=== PATIENT | female | born 1965 | race Asian ===

== ENCOUNTER 2016-10-20 16:21 | Inpatient (IN) | payer OTHER ==
[~2016-10-20] VITALS: Ht 170.2 cm; Wt 118.4 kg
[~2016-10-20 16:21] MED LIST: AMOX1TAB64 PO; METF10002 PO; OXYC-302 PO
[2016-10-20] MEDS ORDERED: ALBUTEROL/IPRATROPIUM 2.5MG/0.5MG, 3 ML NPPB ONE (17:00)
[2016-10-20 17:21] LABS: BLOOD UREA NITROGEN 9 mg/dL (7-18)
[2016-10-20] MEDS ORDERED: ALBUTEROL/IPRATROPIUM 2.5MG/0.5MG, 3 ML ONE (19:46)
[2016-10-20] MEDS ORDERED: LIDOCAINE 1%, 20ML SQ ONE (20:00)
[2016-10-20] MEDS ORDERED: LIDOCAINE 1%, 20ML ONE (20:01)
[2016-10-20] MEDS ORDERED: SODIUM CHLORIDE 0.9% 1,000ML IVBOLUS ONE (20:30)
[2016-10-20] MEDS ORDERED: CLINDAMYCIN PMX 900MG/50ML 50 ML IV ONE (20:30)
[2016-10-20] MEDS ORDERED: CLINDAMYCIN PMX 900MG/50ML 50 ML ONE (21:05)
[2016-10-20] MEDS: OXYcodone IR 5MG TABLET PO PRN (22:38)
[2016-10-20] MEDS: HEPARIN 5,000 UNITS/ML, 1ML SQ SCH (22:38)
[2016-10-20] MEDS: SODIUM CHLORIDE 0.9% 1,000 ML IV SCH (22:39)
[2016-10-21] MEDS: INSULIN ASPART 100 UNITS/ML, PEN SQ-INSULIN SCH ×3 (00:28→11:00)
[2016-10-21 00:31] VITALS: BP 119/77
[2016-10-21 00:47] VITALS: BP 134/77
[2016-10-21] MEDS: OXYcodone IR 5MG TABLET PO PRN ×4 (04:40→20:42)
[2016-10-21] MEDS: CLINDAMYCIN PMX 600MG/50ML 50 ML IV SCH ×3 (04:40→20:41)
[2016-10-21 06:32] LABS: BLOOD UREA NITROGEN 10 mg/dL (7-18)
[2016-10-21 06:38] LABS: ASPARTATE AMINO TRANSFERASE 15 U/L (15-37)
[2016-10-21 07:22] VITALS: BP 119/81
[2016-10-21] MEDS: HEPARIN 5,000 UNITS/ML, 1ML SQ SCH ×2 (08:05→16:13)
[2016-10-21] MEDS: SENNA/DOCUSATE TABLET PO SCH (08:07)
[2016-10-21] MEDS ORDERED: metFORMIN 500 MG TABLET PO SCH (09:00)
[2016-10-21] MEDS: SODIUM CHLORIDE 0.9% 1,000 ML IV SCH ×2 (10:18→20:42)
[2016-10-21] MEDS ORDERED: GLUCAGON 1 MG IM PRN (11:30)
[2016-10-21] MEDS: SODIUM CHLORIDE FLUSH 10ML SYR IVF SCH ×2 (11:30→20:42)
[2016-10-21] MEDS ORDERED: DEXTROSE 50%, 50ML SYRINGE IVPush PRN (11:30)
[2016-10-21] MEDS ORDERED: DEXTROSE 4 GM TAB.CHEW PO PRN (11:30)
[2016-10-21] MEDS: INSULIN REGULAR 100 UNITS/ML, 3ML VIAL SQ-INSULIN SCH ×3 (12:53→20:47)
[2016-10-21 13:12] VITALS: BP 130/74
[2016-10-21 18:39] VITALS: BP 128/84
[2016-10-21] MEDS ORDERED: ALBUTEROL SULFATE 2.5 MG/3 ML ONE (20:12)
[2016-10-22 00:15] VITALS: BP 117/74
[2016-10-22] MEDS: OXYcodone IR 5MG TABLET PO PRN ×5 (00:53→20:49)
[2016-10-22 05:01] LABS: BLOOD UREA NITROGEN 9 mg/dL (7-18)
[2016-10-22] MEDS: CLINDAMYCIN PMX 600MG/50ML 50 ML IV SCH ×3 (05:12→20:49)
[2016-10-22 06:57] VITALS: BP 106/69
[2016-10-22] MEDS: HEPARIN 5,000 UNITS/ML, 1ML SQ SCH ×4 (07:16→23:46)
[2016-10-22] MEDS: SODIUM CHLORIDE 0.9% 1,000 ML IV SCH ×2 (07:16→16:44)
[2016-10-22] MEDS: SODIUM CHLORIDE FLUSH 10ML SYR IVF SCH ×2 (08:30→20:49)
[2016-10-22] MEDS: SENNA/DOCUSATE TABLET PO SCH (08:31)
[2016-10-22] MEDS: POLYETHYLENE GLYCOL 17 GM PACKET PO PRN (08:31)
[2016-10-22] MEDS: INSULIN REGULAR 100 UNITS/ML, 3ML VIAL SQ-INSULIN SCH ×4 (08:31→20:57)
[2016-10-22 14:15] VITALS: BP 132/72
[2016-10-22] MEDS: ALBUTEROL SULFATE 2.5 MG/3 ML NPPB PRN (16:10)
[2016-10-22 20:30] VITALS: BP 114/74
[2016-10-23 00:44] VITALS: BP 110/71
[2016-10-23] MEDS: OXYcodone IR 5MG TABLET PO PRN ×5 (02:56→22:00)
[2016-10-23] MEDS: CLINDAMYCIN PMX 600MG/50ML 50 ML IV SCH ×3 (05:29→20:49)
[2016-10-23] MEDS: ONDANSETRON 2MG/ML, 2ML IVPush PRN (05:39)
[2016-10-23 07:24] VITALS: BP 114/72
[2016-10-23] MEDS: HEPARIN 5,000 UNITS/ML, 1ML SQ SCH ×2 (08:11→16:35)
[2016-10-23] MEDS: SODIUM CHLORIDE 0.9% 1,000 ML IV SCH ×2 (08:12→18:23)
[2016-10-23] MEDS: SENNA/DOCUSATE TABLET PO SCH (08:12)
[2016-10-23] MEDS: SODIUM CHLORIDE FLUSH 10ML SYR IVF SCH ×2 (08:13→20:49)
[2016-10-23] MEDS: INSULIN REGULAR 100 UNITS/ML, 3ML VIAL SQ-INSULIN SCH ×4 (08:15→20:50)
[2016-10-23 13:15] VITALS: BP 114/79
[2016-10-23] MEDS: LACTOBACILLUS CHEW TABLET PO SCH ×2 (16:35→20:50)
[2016-10-23 20:00] VITALS: BP 126/79
[2016-10-24] MEDS: HEPARIN 5,000 UNITS/ML, 1ML SQ SCH ×3 (00:29→16:30)
[2016-10-24 02:00] VITALS: BP 141/90
[2016-10-24] MEDS: OXYcodone IR 5MG TABLET PO PRN ×4 (02:41→17:49)
[2016-10-24] MEDS: SODIUM CHLORIDE 0.9% 1,000 ML IV SCH (05:08)
[2016-10-24] MEDS: CLINDAMYCIN PMX 600MG/50ML 50 ML IV SCH ×2 (05:08→13:24)
[2016-10-24 07:19] VITALS: BP 121/74
[2016-10-24] MEDS: POLYETHYLENE GLYCOL 17 GM PACKET PO PRN (08:31)
[2016-10-24] MEDS: INSULIN REGULAR 100 UNITS/ML, 3ML VIAL SQ-INSULIN SCH ×4 (08:31→21:16)
[2016-10-24] MEDS: SODIUM CHLORIDE FLUSH 10ML SYR IVF SCH ×2 (08:31→21:14)
[2016-10-24] MEDS: LACTOBACILLUS CHEW TABLET PO SCH ×3 (08:32→21:14)
[2016-10-24] MEDS: SENNA/DOCUSATE TABLET PO SCH (08:32)
[2016-10-24] MEDS: INSULIN DETEMIR 100 UNITS/ML, PEN SQ-INSULIN SCH ×2 (09:42→21:13)
[2016-10-24 14:00] VITALS: BP 125/80
[2016-10-24 20:00] VITALS: BP 128/83
[2016-10-24] MEDS ORDERED: CLINDAMYCIN PMX 600MG/50ML 50 ML IV SCH (21:00)
[2016-10-25] MEDS: OXYcodone IR 5MG TABLET PO PRN ×4 (00:33→16:25)
[2016-10-25] MEDS: HEPARIN 5,000 UNITS/ML, 1ML SQ SCH ×3 (00:34→16:28)
[2016-10-25 02:00] VITALS: BP 129/78
[2016-10-25] MEDS: INSULIN REGULAR 100 UNITS/ML, 3ML VIAL SQ-INSULIN SCH ×4 (07:00→20:18)
[2016-10-25 07:28] VITALS: BP 113/74
[2016-10-25] MEDS ORDERED: DOXYCYCLINE 100MG TABLET PO SCH (09:00)
[2016-10-25] MEDS ORDERED: AMOXICILLIN/CLAV 875-125MG TABLET PO SCH (09:00)
[2016-10-25] MEDS: SODIUM CHLORIDE FLUSH 10ML SYR IVF SCH ×2 (09:00→20:28)
[2016-10-25] MEDS: INSULIN DETEMIR 100 UNITS/ML, PEN SQ-INSULIN SCH ×2 (09:22→18:23)
[2016-10-25] MEDS: LACTOBACILLUS CHEW TABLET PO SCH ×3 (09:23→20:28)
[2016-10-25] MEDS: SENNA/DOCUSATE TABLET PO SCH (09:23)
[2016-10-25] MEDS: ONDANSETRON 2MG/ML, 2ML IVPush PRN (12:07)
[2016-10-25] MEDS: CLINDAMYCIN PMX 600MG/50ML 50 ML IV SCH ×2 (14:26→20:28)
[2016-10-25 14:28] VITALS: BP 135/79
[2016-10-25 19:26] VITALS: BP 127/77
[2016-10-26] MEDS: HEPARIN 5,000 UNITS/ML, 1ML SQ SCH ×3 (00:19→16:30)
[2016-10-26] MEDS: OXYcodone IR 5MG TABLET PO PRN (00:19)
[2016-10-26 02:10] VITALS: BP 109/68
[2016-10-26] MEDS: CLINDAMYCIN PMX 600MG/50ML 50 ML IV SCH ×4 (02:52→21:56)
[2016-10-26 05:04] LABS: BLOOD UREA NITROGEN 9 mg/dL (7-18)
[2016-10-26] MEDS: ONDANSETRON 2MG/ML, 2ML IVPush PRN (05:34)
[2016-10-26] MEDS: INSULIN REGULAR 100 UNITS/ML, 3ML VIAL SQ-INSULIN SCH ×4 (07:00→21:00)
[2016-10-26 07:20] VITALS: BP 116/72
[2016-10-26] MEDS: INSULIN DETEMIR 100 UNITS/ML, PEN SQ-INSULIN SCH ×2 (08:01→20:35)
[2016-10-26] MEDS: SODIUM CHLORIDE FLUSH 10ML SYR IVF SCH ×2 (08:03→21:00)
[2016-10-26] MEDS: LACTOBACILLUS CHEW TABLET PO SCH ×3 (08:03→20:34)
[2016-10-26] MEDS: SENNA/DOCUSATE TABLET PO SCH (08:03)
[2016-10-26] MEDS ORDERED: POTASSIUM CHLORIDE 20 MEQ TAB.ER.PRT PO ONE ×2 (11:30→12:00)
[2016-10-26] MEDS: BISACODYL 10 MG SUPP PR PRN (12:47)
[2016-10-26 13:25] VITALS: BP 110/68
[2016-10-26 19:28] VITALS: BP 115/76
[2016-10-26] MEDS ORDERED: DEXTROSE 50%, 50ML SYRINGE IVPush PRN (22:00)
[2016-10-26] MEDS ORDERED: POLYETHYLENE GLYCOL 17 GM PACKET PO PRN (22:00)
[2016-10-26] MEDS ORDERED: GLUCAGON 1 MG IM PRN (22:00)
[2016-10-27] MEDS: HEPARIN 5,000 UNITS/ML, 1ML SQ SCH ×4 (00:14→23:59)
[2016-10-27 01:46] VITALS: BP 126/80
[2016-10-27] MEDS: CLINDAMYCIN PMX 600MG/50ML 50 ML IV SCH ×2 (03:55→11:20)
[2016-10-27] MEDS: INSULIN REGULAR 100 UNITS/ML, 3ML VIAL SQ-INSULIN SCH ×2 (07:00→12:13)
[2016-10-27 07:19] VITALS: BP 124/85
[2016-10-27] MEDS: SENNA/DOCUSATE TABLET PO SCH (07:43)
[2016-10-27] MEDS: LACTOBACILLUS CHEW TABLET PO SCH ×3 (07:43→20:51)
[2016-10-27] MEDS: INSULIN DETEMIR 100 UNITS/ML, PEN SQ-INSULIN SCH ×2 (07:44→20:51)
[2016-10-27] MEDS: SODIUM CHLORIDE FLUSH 10ML SYR IVF SCH ×2 (07:44→20:51)
[2016-10-27] MEDS: ALBUTEROL SULFATE 2.5 MG/3 ML NPPB PRN ×2 (08:25→15:15)
[2016-10-27 13:38] VITALS: BP 108/70
[2016-10-27] MEDS: CEFAZOLIN PMX 1GM/50ML 50 ML IV SCH ×2 (14:47→22:51)
[2016-10-27 20:42] VITALS: BP 117/79
[2016-10-27] MEDS ORDERED: OMNIPAQUE 350 MG/ML, 100ML BOTTLE ONE (23:25)
[2016-10-27] MEDS: BISACODYL 10 MG SUPP PR PRN (23:32)
[2016-10-28] MEDS: CEFAZOLIN PMX 1GM/50ML 50 ML IV SCH ×2 (06:04→15:06)
[2016-10-28 07:31] VITALS: BP 115/78
[2016-10-28] MEDS: SODIUM CHLORIDE FLUSH 10ML SYR IVF SCH (09:00)
[2016-10-28] MEDS: SENNA/DOCUSATE TABLET PO SCH (09:00)
[2016-10-28] MEDS: INSULIN DETEMIR 100 UNITS/ML, PEN SQ-INSULIN SCH (10:12)
[2016-10-28] MEDS: LACTOBACILLUS CHEW TABLET PO SCH (10:12)
[2016-10-28] MEDS: HEPARIN 5,000 UNITS/ML, 1ML SQ SCH (10:12)
[2016-10-28] MEDS ORDERED: POLY17PO5 PO (10:16)
[2016-10-28] MEDS ORDERED: ACID1TAB7 PO (10:16)
[2016-10-28] MEDS ORDERED: SENN1TAB7 PO (10:16)
[2016-10-28] MEDS ORDERED: CEPH-368 PO (10:16)
[2016-10-28] MEDS ORDERED: OXYC5TAB3 PO (10:16)
[2016-10-28] MEDS ORDERED: INSU100C5 SQ-INSULIN (10:17)
[2016-10-28] MEDS ORDERED: OXYC-302 PO (10:33)
[2016-10-28] MEDS ORDERED: METF10002 PO (10:33)
[2016-10-28] MEDS: BISACODYL 10 MG SUPP PR PRN (11:15)
[2016-10-28 13:08] VITALS: BP 115/76
== END 2016-10-28 15:45 | DRG 853 ==
LOC: ED 20:15 → EDIP 20:28 → 3NE 21:50
PROVIDERS: ADMIT Internal Medicine; ATTEND Family Medicine
PROC: 0J9L0ZZ Drainage of Right Upper Leg Subcutaneous Tissue and Fascia, Open Approach (ICD-10-PCS; principal; 2016-10-20)
DX: A41.9 Sepsis, unspecified organism (principal); E43 Unspecified severe protein-calorie malnutrition; L02.415 Cutaneous abscess of right lower limb; E87.1 Hypo-osmolality and hyponatremia; E44.0 Moderate protein-calorie malnutrition; L03.115 Cellulitis of right lower limb; Z68.41 Body mass index [BMI] 40.0-44.9, adult; R65.10 Systemic inflammatory response syndrome (SIRS) of non-infectious origin without acute organ dysfunction; B34.9 Viral infection, unspecified; E11.21 Type 2 diabetes mellitus with diabetic nephropathy; E11.65 Type 2 diabetes mellitus with hyperglycemia; E66.01 Morbid (severe) obesity due to excess calories; J45.20 Mild intermittent asthma, uncomplicated; Z88.8 Allergy status to other drugs, medicaments and biological substances
CPT/HCPCS: 36415; 70450; 71010; 76942; 80048; 80053; 82040; 82962; 83036; 83605; 84145; 85025; 87040; 87070; 87077; 87147; 87186; 87205; 93970; 94640; 99285; J0690; J1644; J1815; J2405; J7613; J7620; Q9967; J7030

== ENCOUNTER 2021-02-03 22:20 | Emergency (ER) | payer SELFPAY ==
[~2021-02-03] VITALS: Ht 167.6 cm; Wt 110.0 kg
[~2021-02-03 22:20] MED LIST changes: +ACID1TAB7 PO; +CEPH-368 PO; +INSU100C5 SQ-INSULIN; -OXYC-302 PO; +OXYC1TAB12 PO; +OXYC5TAB98 PO; +POLY17PO5 PO; +SENN-177 PO
[2021-02-04 00:19] VITALS: BP 122/68
== END 2021-02-04 00:21 | disposition home or self-care (01) ==
LOC: ED 22:25
DX: S39.012A Strain of muscle, fascia and tendon of lower back, initial encounter (principal); E11.9 Type 2 diabetes mellitus without complications; J45.909 Unspecified asthma, uncomplicated; E66.01 Morbid (severe) obesity due to excess calories; Z68.39 Body mass index [BMI] 39.0-39.9, adult; X58.XXXA Exposure to other specified factors, initial encounter; Y93.89 Activity, other specified; Y92.89 Other specified places as the place of occurrence of the external cause; Y99.8 Other external cause status
CPT/HCPCS: 99283